=== PATIENT | male | born 1950 | race Caucasian/White ===

== ENCOUNTER → 2016-12-26 | Outpatient (CLI) | payer OTHER ==
--- NOTE | 2016-12-26 11:58 | DI ---
XR SHOULDER MIN 2VW,12/26/2016 10:34 AM: Clinical History: Right shoulder pain Previous Exam: None at this facility. Findings: Multiple views of the right shoulder are obtained, and demonstrate anatomic alignment without fractur es. The adjacent right lung and chest wall are unremarkable. Impression: Normal right shoulder.
--- NOTE | 2016-12-26 19:58 | DI ---
MRI UP EXTREMITY JNT W/O KATHARINE,12/26/2016 1:56 PM: Clinical History: Right shoulder pain. Previous Exam: None at this facility. Findings: Multiplanar MR images are obtained through the right shoulder without contrast, and demonstrate a tea r of the subscapularis muscle with some interstitial tearing to the level of the myotendinous junctio n and within the musculature. The long head of the biceps tendon is unremarkable. The there is mild t endinosis of the supraspinatus. The Infraspinatus and teres minor tendons are unremarkable. There is also interstitial tearing and edema of the deltoid. Degenerative changes are seen involving the right acromioclavicular joint. This causes some mild mass effect on the underlying supraspinatus tendon. Long head of biceps tendon is normal with a trace amount of fluid within the synovial sheath. There is irregularity of the posterior glenoid most consistent with a prior osseous Bankart. This garvin s not appear to be an acute finding. Evaluation of the glenoid labrum appears to be unremarkable without any acute tear. Impression: 1. Interstitial tearing of the myotendinous junction and some of the muscle body of the subscapularis tendon as well as the deltoid tendon. This is most consistent with an acute or subacute injury. Rosas elate clinically. This could have been secondary to a dislocation. 2. Mild tendinosis of the supraspinatus tendon. 3. Irregularity of the bony cortex of the posterior glenoid most likely representing a prior osseous Bankart lesion. 4. Degenerative hypertrophy of the right acromioclavicular joint.
== END ==
LOC: RAD 10:22
PROVIDERS: ATTEND Orthopaedic Surgery
DX: M25.511 Pain in right shoulder (principal); S46.811A Strain of other muscles, fascia and tendons at shoulder and upper arm level, right arm, initial encounter; M75.81 Other shoulder lesions, right shoulder; M19.011 Primary osteoarthritis, right shoulder
CPT/HCPCS: 73030; 73221